=== PATIENT | female | born 2000 | race Caucasian/White ===

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

== ENCOUNTER 2021-06-19 13:45 | Observation (INO) | payer MEDICAID, SELFPAY ==
[~2021-06-19] VITALS: Ht 165.1 cm; Wt 80.7 kg
[2021-06-19] MEDS ORDERED: PRETAB PO (14:19)
[2021-06-19 14:22] VITALS: BP 109/57
== END 2021-06-19 15:40 | disposition left against medical advice (07) ==
LOC: MLD 13:45
PROVIDERS: ADMIT Obstetrics & Gynecology; ATTEND Obstetrics & Gynecology
DX: O26.892 Other specified pregnancy related conditions, second trimester (principal); R10.9 Unspecified abdominal pain; Z20.822 Contact with and (suspected) exposure to COVID-19; O99.512 Diseases of the respiratory system complicating pregnancy, second trimester; J45.909 Unspecified asthma, uncomplicated; Z3A.26 26 weeks gestation of pregnancy
CPT/HCPCS: 59025; G0378

== ENCOUNTER 2021-06-30 18:45 | Observation (INO) | payer MEDICAID, SELFPAY ==
[~2021-06-30] VITALS: Ht 165.1 cm; Wt 80.7 kg
[~2021-06-30 18:45] MED LIST: PRETAB PO
[2021-06-30] MEDS ORDERED: LACTATED RINGERS 1,000 ML IV SCH (19:35)
[2021-06-30 20:04] LABS: BASOPHILS % (AUTO) 0.4 % (0.0-2.0); EOSINOPHILS % (AUTO) 0.4 % (0.0-4.0); HEMATOCRIT 31.1 % (36-48); HEMOGLOBIN 10.8 g/dL (12.0-16.0); LYMPHOCYTES # (AUTO) 2.3 K/uL (2.5-16.5); LYMPHOCYTES % (AUTO) 29.5 % (20.5-51.1); MEAN CORPUSCULAR HEMOGLOBIN 32 pg (27-31); MEAN CORPUSCULAR HGB CONC 35 g/dL (33-37); MEAN CORPUSCULAR VOLUME 90.8 fL (80-94); MONOCYTES # (AUTO) 0.5 K/uL (0.8-1.0); MONOCYTES % (AUTO) 6.6 % (1.7-9.3); NEUTROPHILS # (AUTO) 4.9 K/uL (1.8-7.7); NEUTROPHILS % (AUTO) 63.1 % (42.2-75.2); PLATELET COUNT (AUTO) 224 K/uL (140-450); RED BLOOD CELL COUNT(AUTO) 3.42 MIL/uL (4.20-5.40); RED CELL DISTRIBUTION WIDTH 12.8 % (11.6-13.7); WHITE BLOOD COUNT (AUTO) 7.8 K/uL (4.5-11.0)
[2021-06-30 21:28] LABS: APPEARANCE,URINE SL CLOUDY (CLEAR); BILIRUBIN,URINE NEGATIVE (NEGATIVE); BLOOD, URINE NEGATIVE (NEGATIVE); COLOR,URINE YELLOW (YELLOW); LEUKOCYTE ESTERASE ,URINE NEGATIVE (NEGATIVE); NITRITE, URINE NEGATIVE (NEGATIVE); PH,URINE 6.5 (5.0-9.0); UGLUCOSE NEGATIVE (NEGATIVE)
== END 2021-06-30 22:20 | disposition home or self-care (01) ==
LOC: MLD 18:45
PROVIDERS: ADMIT Obstetrics & Gynecology; ATTEND Obstetrics & Gynecology
DX: O46.92 Antepartum hemorrhage, unspecified, second trimester (principal); Z3A.27 27 weeks gestation of pregnancy
CPT/HCPCS: 36415; 76815; 81003; 85025; 86886; 86900; 86901; G0378; Q0092

== ENCOUNTER 2022-06-17 10:57 | Emergency (ER) | payer MEDICAID, OTHER ==
[~2022-06-17] VITALS: Ht 165.1 cm; Wt 81.6 kg
[2022-06-17 11:10] VITALS: BP 114/79
--- NOTE | 2022-06-17 11:14 | NUR ---
21/F WALKED IN C/O DIZZINESS AND HEADACHE ACCOMPANIED BY [place] ONSET 10 DAYS AGO S/P TRIP AND FALL, HITTING HEAD ON WOODEN SOFA. DENIES LOC. AAO4, AMBULATORY, VITALS STABLE, NO ACUTE DISTRESS NOTED PMH: DENIES
[2022-06-17] MEDS ORDERED: ONDANSETRON 4 MG ODT PO ONE (11:45)
[2022-06-17] MEDS ORDERED: ACETAMINOPHEN EXTRA STRENGTH 500 MG TAB PO ONE (11:45)
[2022-06-17] MEDS ORDERED: ACET-10509 PO ×2 (13:47→14:06)
[2022-06-17] MEDS ORDERED: ONDA-188 SL ×2 (13:47→14:06)
[2022-06-17] MEDS ORDERED: NAPR-54 PO ×2 (13:47→14:06)
[2022-06-17] MEDS ORDERED: MECL-303 PO ×2 (13:47→14:06)
[2022-06-17 14:05] VITALS: BP 133/79
--- NOTE | 2022-06-17 14:05 | NUR ---
Patient discharged with v/s stable. Written and verbal after care instructions given and explained. Patient alert, oriented and verbalized understanding of instructions. Ambulatory with to car. All questions addressed prior to discharge. ID band removed. Patient advised to follow up with PMD. Rx of antivert/zofran/naprosyn given. Patient educated on indication of medication including possible reaction and side effects. Opportunity to ask questions provided and answered.
== END 2022-06-17 14:05 | disposition home or self-care (01) ==
LOC: MED 10:57
DX: S06.0X0A Concussion without loss of consciousness, initial encounter (principal); R11.2 Nausea with vomiting, unspecified; X58.XXXA Exposure to other specified factors, initial encounter; Y93.89 Activity, other specified; Y92.89 Other specified places as the place of occurrence of the external cause; Y99.8 Other external cause status
CPT/HCPCS: 70450; 99284; Q0162